=== PATIENT | male | born 1985 | race Two or more races ===

== ENCOUNTER 2017-06-04 17:54 | Emergency (ER) | payer SELFPAY ==
--- NOTE | 2017-06-04 19:16 | RAD ---
INDICATION: Left clavicle pain COMPARISON: Chest x-ray July 12, 2008 TECHNIQUE: AP views were obtained. FINDINGS: There are osteolytic about the distal clavicle. These findings do not appear acute. There is no widening of the AC joint. The visualized glenohumeral joint appears intact. The soft tissues are normal. IMPRESSION: NONSPECIFIC OSTEOLYTIC CHANGES DISTAL CLAVICLE
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
[2017-06-04] MEDS ORDERED: Ketorolac INJ* 60 MG/2 ML VIAL IM ONE (21:06)
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
[2017-06-04] MEDS ORDERED: Tetan/Diph/Pertus SYR(Tdap)* 0.5 ML SYR(BOOSTRIX) use SYR IM ONE (21:42)
[2017-06-04] MEDS ORDERED: HYDROcodone/ACETAMIN 5-325 MG* 1 TAB PO ONE (21:50)
[2017-06-04 22:16] VITALS: BP 141/93
== END 2017-06-04 22:16 | disposition home or self-care (01) ==
LOC: ED 17:54
DX: S43.402A Unspecified sprain of left shoulder joint, initial encounter (principal); T14.8 Other injury of unspecified body region; K21.9 Gastro-esophageal reflux disease without esophagitis; V20.4XXA Motorcycle driver injured in collision with pedestrian or animal in traffic accident, initial encounter; Y92.9 Unspecified place or not applicable
CPT/HCPCS: 70450; 71250; 74150; 90471; 90715; 96372; 99282; J1885

== ENCOUNTER 2018-07-23 11:00 | Emergency (ER) | payer OTHER | END 2018-07-23 13:58 | disposition left against medical advice (07) | LOC: ED 11:00 | DX: R68.89 Other general symptoms and signs (principal); Z53.21 Procedure and treatment not carried out due to patient leaving prior to being seen by health care provider ==